=== PATIENT | female | born 1975 | race Two or more races ===

== ENCOUNTER 2024-11-14 15:24 | Outpatient (RCR) | payer BC, SELFPAY | END 2024-11-23 23:59 | disposition home or self-care (01) | LOC: SCTC 15:24 | PROVIDERS: PCP Family Medicine; Referring Provider Nurse Practitioner Family; Visit Provider Nurse Practitioner Family | DX: D50.9 Iron deficiency anemia, unspecified (principal); Z87.19 Personal history of other diseases of the digestive system | CPT/HCPCS: 99212; G0463 ==

== ENCOUNTER 2025-01-30 15:49 | Outpatient (RCR) | payer BC, SELFPAY | END 2025-02-23 23:59 | disposition home or self-care (01) | LOC: SCTC 15:49 | PROVIDERS: PCP Family Medicine; Referring Provider Family Medicine; Visit Provider Nurse Practitioner Family | DX: D75.89 Other specified diseases of blood and blood-forming organs (principal); R74.8 Abnormal levels of other serum enzymes; Z86.2 Personal history of diseases of the blood and blood-forming organs and certain disorders involving the immune mechanism | CPT/HCPCS: 99212; G0463 ==

== ENCOUNTER → 2025-04-02 | Outpatient (CLI) | payer BC, SELFPAY ==
[2025-04-02 13:50] LABS: HCG Qualitative,Urine Negative
== END | disposition home or self-care (01) ==
LOC: SLDO 13:05
PROVIDERS: Referring Provider Radiology Diagnostic Radiology; Visit Provider Radiology Diagnostic Radiology
DX: Z32.00 Encounter for pregnancy test, result unknown (principal)
CPT/HCPCS: 81025

== ENCOUNTER → 2025-04-02 | Outpatient (CLI) | payer BC, SELFPAY ==
--- NOTE | 2025-04-02 13:30 | XR_ITS ---
Examination: CT abdomen, without intravenous contrast. CT abdomen, with intravenous contrast. Sagittal and coronal 2-D reconstructions. Time of exam:April 02, 2025 1437 hours Comparison May 15, 2018 INDICATIONS: Diagnosis indications anemia unspecified on laboratory examinations beginning 5 years ago CTDI: vol (mGy) 15.6 DLP: (mGycm) 474 Technique: Multiple 3.0 mm axial noncontrast images of the abdomen have been obtained. Multiple 3.0 mm axial images post administration 60 cc [id number] intravenous contrast have been obtained. Sagittal and coronal 3-D reconstructions have been obtained. Low dose protocols were performed. One or more of the following dose reduction techniques were used; automated exposure control, adjustment of the mA and/or KV according to patient size, use of iterative reconstruction technique. Findings: No focal liver or splenic lesions No gallstones No pancreatic or adrenal mass. No renal or ureteral calculi. Aorta normal size. No abdominal or pelvic lymphadenopathy 12 mm fat-containing umbilical hernia Normal appendix IMPRESSION: No abdominal mass No abdominal lymphadenopathy
== END | disposition home or self-care (01) ==
PROVIDERS: PCP Family Medicine; Referring Provider Nurse Practitioner Family; Visit Provider Nurse Practitioner Family
DX: D50.9 Iron deficiency anemia, unspecified (principal)
CPT/HCPCS: 74170; A4649; Q9967

== ENCOUNTER 2025-05-20 15:45 | Outpatient (RCR) | payer BC, SELFPAY ==
--- NOTE | 2025-05-27 19:27 | CTCFLWUP_ITS ---
Patient: ROWENA BARLOW : 1975 Page 2 of 4 FOLLOW UP NOTE DATE OF SERVICE: 05/20/2025 NAME: ROWENA BARLOW ACCOUNT: [id number] : 1975 AGE: 50 INTERVAL HISTORY: Patient has a history of iron deficiency anemia and ulcerative colitis. Recent labs show no current anemia but a slight elevation in MCV and liver enzymes, elevated MCV possible side effect from medication, mercaptopurine. Patient reports history of fatty liver. Patient denies drinking alcohol, the last time she drank was about 4 to 5 years ago, patient reports she would only drink occasionally, no longer drinking alcohol, is trying to follow healthy lifestyle. Patient denies known history of hepatitis. ONCOLOGY HISTORY: DIAGNOSIS: Iron deficiency anemia, unspecified [ICD10] D50.9 History of iron deficiency anemia History of ulcerative colitis. DATE OF DIAGNOSIS: STAGE/TNM: TREATMENT HISTORY: Care?Plan Start?Date Cycle Day Intent HISTORY OF PRESENT ILLNESS: PREVIOUS NOTE: Rowena Barlow is a 50-year-old Bulgarian-speaking female with history of ulcerative colitis since age 21 currently on 6-mercaptopurine under the care of Dr. Hampton of [place] is being followed in this clinic for history of iron deficiency anemia. She is in the clinic today with repeat labs. Patient has had a colonoscopy done previously. She is doing very well. Denies any new complaints. Denies any weakness fatigue cough chest pain shortness of breath abdominal pain or leg cramps. Her last labs are drawn on 07/26/2018, WBC count is 5.5 hemoglobin 13.6 platelets are 219,000's. Her iron saturation is 35% with TIBC of 313 03/03/2019: WBC 5.5, hemoglobin 13.6, MCV 98, platelets 242,000. Iron saturation 22%, ferritin 69. 11/27/2019: WBC 6.0, hemoglobin 12.9, platelets 286,000. Iron saturation 25%, ferritin 19. 12/02/2020: WBC 6.3, hemoglobin 13.2, platelets 243,000, AST 62, ALT 203, total bilirubin 1.1. 01/28/2021: WBC 4.7, hemoglobin 13.0, platelets 270,000, AST 39, ALT 126, total bilirubin 1.3, ferritin 57, iron saturation 25%, TIBC 343, iron 88. 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 mercaptopurine - 50 mg As directed 2. mesalamine - 500 mg 4 Capsule Daily 3. vitamin [id number] acid - 1,000-400 mcg 1 Lozenge Daily Medications Last Reconciled by Britt Ogden MD on 05/20/2025 ALLERGIES: No Known Drug Allergies REVIEW OF SYSTEMS: A complete 14-point review of systems was performed and is negative except as noted in interval history. PHYSICAL EXAMINATION: VITAL SIGNS: Temperature?98.6, B/P?122/59, Oxygen?Saturation?98% Weight?170?lbs PAIN: 0 - No pain Telemedicine, not done LABORATORY DATA: I have personally reviewed and interpreted each of the patient?s relevant lab tests, abnormal findings are below: Date 06/08/22 10/05/23 ??WHITE?BLOOD?COUNT?(Thou/mm3) 6.1 4.9 ??RED?BLOOD?COUNT?(Miln/mm3) 4.11 3.72?L ??HEMOGLOBIN?(gm/dl) 13.2 12.6 ??HEMATOCRIT?(%) 39.8 39.0 ??PLATELET?COUNT?(Thou/mm3) 259 314 ??NEUTROPHILS?%,?AUTO?(%) 60 67 ??LYMPH?%,?AUTO?(%) 25 23 ??NEUTROPHILS,?AUTO?(Thou/mm3) 3.6 3.3 ??GLUCOSE,RANDOM?(mg/dL) ? 92 ??BLOOD?UREA?NITROGEN?(mg/dL) ? 10 ??CREATININE?(mg/dL) ? 0.70 ??SODIUM?(mmol/L) ? 142 ??POTASSIUM?(mmol/L) ? 4.5 ??CHLORIDE?(mmol/L) ? 108?H ??CrCl?(CandG)?(ml/min) ? 121.96 ??AST/SGOT?(Unit/L) ? 38?H ??ALT/SGPT?(Unit/L) ? 101?H ??ALKALINE?PHOSPHATASE?(Unit/L) ? 60 ??BILIRUBIN,?TOTAL?(mg/dL) ? 1.1 ??PROTEIN?TOTAL?(gm/dl) ? 7.2 ??ALBUMIN,?SERUM?(gm/dl) ? 4.2 ??GLOBULIN?(gm/dl) ? 3.0 ??ALBUMIN/GLOBULIN?RATIO ? 1.4 ??CALCIUM,?SERUM?(mg/dL) ? 9.2 ??CALCIUM?SERUM?(CORRECTED)?(mg/dL) ? 9.2 ??TOTAL?IRON?BINDING?CAP?(S*)?(mcg/dL) ? 318 ??UNBOUND?IBC?(mcg/dL) ? 212?L ASSESSMENT/PLAN: 1. Iron Deficiency Anemia (Resolved) Assessment: Patient has a history of iron deficiency anemia, but recent labs show resolution. Hemoglobin is now 13.3 g/dL, which is within normal range. Iron studies show ferritin at 81 ng/mL and iron saturation at 27.1%, indicating adequate iron stores. B12 (800 pg/mL) and folate (18.8 ng/mL) levels are also within normal limits, ruling out other nutritional causes of anemia. Plan: - Continue monitoring with regular lab work 2. Macrocytosis Assessment: Patient's recent labs show macrocytosis with MCV of 102.6 fL. MCV also elevated in 2018. This is likely secondary to mercaptopurine use for ulcerative colitis, as nutritional causes (B12 and folate deficiency) have been ruled out by normal B12 and folate levels. Plan: - Continue monitoring MCV with regular CBC 3. Elevated Liver Enzymes Assessment: Recent labs show elevated ALT at 100 U/L, while other liver function tests (AST, alkaline phosphatase, total bilirubin) are within normal limits. Patient reports a history of fatty liver disease, which could contribute to this elevation. Patient denies current alcohol use, having abstained for the past 4 years, and has no history of hepatitis or cirrhosis. Cont to follow with GI CBC CMP iron panel ferritin reticulocyte count B12 folate haptoglobin LDH hepatitis panel No hepatomegaly No lymphadenopathy Order # Description RETURN TO CLINIC: I reviewed the diagnosis, prognosis, and recommended treatment/procedure options with the patient (and/or their legal community engagement representative), including the potential benefits, risks, side effects and alternative therapies. We also discussed the option of no treatment and the possibility of clinical trial participation, if applicable. All questions were addressed, and they demonstrated understanding. They provided informed consent to proceed with the proposed plan of care. BILLING AND COMPLIANCE: I reviewed external records from providers outside my specialty as summarized above. I spent a total of 50 minutes on this patient?s care on the day of their visit excluding time spent related to any billed procedures. This time includes time spent with the patient as well as time spent documenting in the medical record, reviewing patients records and tests, obtaining history, placing orders, communicating with other healthcare professionals, counseling the patient, family or caregiver, and/or care coordination for the diagnoses above. Electronically Signed by: Petar Garces MD T: 7:25 PM CC: Laura?GIOVANA Guerrero PCP: Jesu Bobby Referring: Jesu Bobby This document was completed utilizing speech recognition software. Grammatical errors, random word insertions, pronoun errors, and incomplete sentences are an occasional consequence of this system due to software limitations, ambient noise, and hardware issues. Any formal questions or concerns about the content, text or information contained within the body of this dictation should be directly addressed to the provider for clarification.
== END 2025-05-26 23:59 | disposition home or self-care (01) ==
LOC: SCTC 15:45
PROVIDERS: PCP Family Medicine; Referring Provider Family Medicine; Visit Provider Internal Medicine Hematology & Oncology
DX: D75.89 Other specified diseases of blood and blood-forming organs (principal); K76.0 Fatty (change of) liver, not elsewhere classified; Z86.2 Personal history of diseases of the blood and blood-forming organs and certain disorders involving the immune mechanism
CPT/HCPCS: 99212; G0463

== ENCOUNTER → 2025-06-26 | Outpatient (CLI) | payer BC, SELFPAY ==
[2025-06-27 11:40] LABS: BVAG Candida Negative (Negative); Bacterial Vaginosis Markers Negative (Negative); Candida glabrata Negative (Negative); Candida krusei PCR Negative (Negative); Trichomonas Negative (Negative)
== END | disposition home or self-care (01) ==
LOC: SLDO 14:47
PROVIDERS: Referring Provider Physician Assistant Medical; Visit Provider Physician Assistant Medical
DX: B37.89 Other sites of candidiasis (principal); N76.0 Acute vaginitis; A59.01 Trichomonal vulvovaginitis
CPT/HCPCS: 81514

== ENCOUNTER → 2025-08-21 | Outpatient (CLI) | payer OTHER, SELFPAY ==
--- NOTE | 2025-08-21 14:24 | XR_ITS ---
Examination: Hand, left 3 views Technique: Hand AP, oblique, lateral 3 views Date and time of exam: August 21, 2025, 1441 hours INDICATIONS: Left hand pain this week. FINDINGS: Moderate osteopenia. No fracture. No erosive or other significant arthritic change. IMPRESSION: No fracture No erosive or other significant arthritic change
--- NOTE | 2025-08-21 14:24 | XR_ITS ---
Examination: Wrist, left 3 views Technique: Wrist AP, oblique, lateral 3 views Date and time of exam: August 21, 2025, 1444 hours INDICATIONS: Left wrist pain this week. FINDINGS: No fracture or dislocation No foreign body No erosive or other significant arthritic change IMPRESSION: No erosive or other significant arthritic change
== END | disposition home or self-care (01) ==
LOC: SDIM 14:02
PROVIDERS: PCP Orthopaedic Surgery; Referring Provider Orthopaedic Surgery; Visit Provider Orthopaedic Surgery
DX: M79.641 Pain in right hand (principal); M25.532 Pain in left wrist
CPT/HCPCS: 73110; 73130